=== PATIENT | female | born 1970 | race Caucasian/White ===

== ENCOUNTER 2016-12-29 01:13 | Emergency (ER) | payer MEDICARE | END 2016-12-29 02:20 | disposition home or self-care (01) | LOC: D.ER 01:13 | DX: K08.89 Other specified disorders of teeth and supporting structures (principal); Z85.42 Personal history of malignant neoplasm of other parts of uterus; R68.84 Jaw pain ==

== ENCOUNTER 2017-11-29 04:54 | Emergency (ER) | payer MEDICARE ==
[~2017-11-29] VITALS: Ht 165.1 cm; Wt 66.4 kg
[2017-11-29 05:00] VITALS: Ht 165.1 cm; Wt 66.4 kg
[2017-11-29] MEDS ORDERED: AMOXICILLIN500 M1 PO (05:24)
[2017-11-29] MEDS ORDERED: NORCO 7.5/325 T1 TA1 PO (05:24)
[2017-11-29 05:40] VITALS: BP 122/78
== END 2017-11-29 05:40 | disposition home or self-care (01) ==
LOC: D.ER 04:54
DX: K08.89 Other specified disorders of teeth and supporting structures (principal); K04.7 Periapical abscess without sinus; K21.9 Gastro-esophageal reflux disease without esophagitis; Z85.41 Personal history of malignant neoplasm of cervix uteri

== ENCOUNTER 2018-07-19 21:53 | Emergency (ER) | payer MEDICARE ==
[~2018-07-19] VITALS: Ht 165.1 cm; Wt 65.8 kg
[~2018-07-19 21:53] MED LIST: AMOXICILLIN500 M1 PO; NORCO 7.5/325 T1 TA1 PO
[2018-07-19 22:07] VITALS: Ht 165.1 cm; Wt 65.8 kg
[2018-07-19 23:19] VITALS: BP 106/70
== END 2018-07-19 23:20 | disposition home or self-care (01) ==
LOC: D.ER 21:53
DX: H11.32 Conjunctival hemorrhage, left eye (principal)